=== PATIENT | male | born 1960 | race Caucasian/White ===

== ENCOUNTER → 2020-12-28 | Outpatient (CLI) | payer OTHER ==
[~2020-12-28] MED LIST: ACIPHEX 20 MG T20 MG PO; AMOXICILLIN 50500 MG PO; ASPIRIN81 M2 PO; GLUCOSAMINE HC500 MG PO; LEVOTHYROXIN0.075 MG PO; MOBIC15 MG PO; TOPAMAX 25 MG T25 M1 PO
== END ==
LOC: CAT 07:50
PROVIDERS: ATTEND Family Medicine
DX: Z13.6 Encounter for screening for cardiovascular disorders (principal); I25.10 Atherosclerotic heart disease of native coronary artery without angina pectoris; E78.00 Pure hypercholesterolemia, unspecified

== ENCOUNTER → 2021-01-27 | Outpatient (CLI) | payer BC | LOC: SJCVCIMAG 11:49 | PROVIDERS: ATTEND Internal Medicine Cardiovascular Disease | DX: R93.1 Abnormal findings on diagnostic imaging of heart and coronary circulation (principal); E78.5 Hyperlipidemia, unspecified ==